=== PATIENT | female | born 1950 | race Caucasian/White ===

== ENCOUNTER 2019-08-31 08:21 | Observation (INO) | payer MEDICARE, BC ==
[~2019-08-31] VITALS: Ht 167.6 cm; Wt 51.0 kg
[~2019-08-31 08:21] MED LIST: ABAL1.56 INJ; ADVIL PM; BIOTIN; CALCIUM; EPINEPHRINE 1 MG/ML, 1ML ONE; FISH OIL; KETOROLAC 60 MG/2 ML ONE; MAGNESIUM; MONT10TA6 PO; RALO60TA PO; ROPIvacaine/PF 0.2%, 20 ML ONE; SODIUM CHLORIDE 0.9% 50 ML ONE; TART CHERRY; TRANEXAMIC ACID 100 MG/ML, 10ML ONE; TURMERIC
[2019-08-31] MEDS ORDERED: LACTATED RINGERS 1,000 ML IV SCH (09:12)
[2019-08-31 09:16] VITALS: BP 153/92
[2019-08-31] MEDS ORDERED: GABAPENTIN 300 MG CAPSULE PO ONE (09:30)
[2019-08-31] MEDS ORDERED: ACETAMINOPHEN 500 MG TABLET PO ONE (09:30)
[2019-08-31] MEDS ORDERED: FENTANYL PF 250 MCG/5ML ONE (09:35)
[2019-08-31] MEDS ORDERED: MIDAZOLAM 1 MG/ML, 2ML ONE (09:35)
[2019-08-31] MEDS ORDERED: LIDOCAINE-MPF 1%, 2ML ONE (09:41)
[2019-08-31] MEDS ORDERED: LIDOCAINE-MPF 1%, 2ML INFIL ONE (10:00)
[2019-08-31] MEDS ORDERED: SCOPOLAMINE PATCH, 1.5MG PATCH.TD72 TD ONE ×2 (10:43)
[2019-08-31] MEDS ORDERED: ACETAMINOPHEN 650 MG/20.3 ML UDC PO PRN (11:00)
[2019-08-31] MEDS ORDERED: ALUMINUM/MAG/SIMETHICONE 30 ML UDC PO PRN (11:00)
[2019-08-31] MEDS ORDERED: ONDANSETRON 4 MG TABLET PO PRN (11:00)
[2019-08-31] MEDS ORDERED: PROMETHAZINE 25 MG/ML, 1ML IM PRN (11:00)
[2019-08-31] MEDS ORDERED: DIPHENHYDRAMINE 50 MG/ML, 1ML IVPush PRN (11:00)
[2019-08-31] MEDS ORDERED: DIPHENHYDRAMINE 25 MG CAPSULE PO PRN (11:00)
[2019-08-31] MEDS ORDERED: BISACODYL 10 MG SUPP PR PRN (11:00)
[2019-08-31] MEDS ORDERED: SENNA/DOCUSATE TABLET PO PRN (11:00)
[2019-08-31] MEDS ORDERED: HYDROmorphone 1 MG/ML, 1ML INJ IVPush PRN ×2 (11:00→11:30)
[2019-08-31] MEDS ORDERED: MAGNESIUM HYDROXIDE 8%, 30ML UDC PO PRN (11:00)
[2019-08-31] MEDS ORDERED: PSYLLIUM PACKET PO PRN (11:00)
[2019-08-31] MEDS ORDERED: POLYETHYLENE GLYCOL 17 GM PACKET PO PRN (11:00)
[2019-08-31] MEDS ORDERED: VANCOMYCIN 1,000 MG ONE (11:08)
[2019-08-31] MEDS ORDERED: SODIUM CHLORIDE 0.9% 50 ML ONE (11:20)
[2019-08-31] MEDS ORDERED: ROPIvacaine/PF 0.2%, 20 ML ONE (11:20)
[2019-08-31] MEDS ORDERED: ONDANSETRON 2MG/ML, 2ML ONE (11:21)
[2019-08-31] MEDS ORDERED: PROPOFOL 10 MG/ML, 20ML ONE (11:21)
[2019-08-31] MEDS ORDERED: LIDOCAINE-MPF 2% ,5ML ONE (11:21)
[2019-08-31] MEDS ORDERED: DEXAMETHASONE 4 MG/ML, 1ML ONE (11:21)
[2019-08-31] MEDS ORDERED: BUPIVACAINE/PF 0.25% ONE (11:21)
[2019-08-31] MEDS ORDERED: CEFAZOLIN 1,000 MG ONE (11:21)
[2019-08-31] MEDS ORDERED: MIDAZOLAM 1 MG/ML, 2ML IV PRN (11:30)
[2019-08-31] MEDS ORDERED: MEPERIDINE/PF 25MG/ML,1ML IVPush PRN (11:30)
[2019-08-31] MEDS ORDERED: PROMETHAZINE 25 MG/ML, 1ML IV PRN (11:30)
[2019-08-31] MEDS ORDERED: METOPROLOL 1 MG/ML, 5ML IV PRN (11:30)
[2019-08-31] MEDS ORDERED: ALBUTEROL/IPRATROPIUM 2.5MG/0.5MG, 3 ML NPPB PRN (11:30)
[2019-08-31] MEDS ORDERED: hydrALAzine 20 MG/ML, 1ML IV PRN (11:30)
[2019-08-31] MEDS ORDERED: OXYcodone 5 MG/5 ML ORAL.SOL UDC PO PRN (11:30)
[2019-08-31] MEDS ORDERED: OXYcodone 5 MG/5 ML ORAL.SOL UDC ONE (12:25)
[2019-08-31] MEDS ORDERED: FENTANYL PF 100 MCG/2ML ONE ×2 (12:25→12:52)
[2019-08-31] MEDS: FENTANYL PF 100 MCG/2ML IV PRN ×3 (12:28→12:54)
[2019-08-31] MEDS ORDERED: TRANEXAMIC ACID 1,000 MG in SODIUM CHLORIDE 0.9% 100 ML IVPB ONE (12:34)
[2019-08-31] MEDS ORDERED: KETOROLAC 30 MG/1 ML ONE (12:54)
[2019-08-31] MEDS: KETOROLAC 30 MG/1 ML IV SCH ×2 (12:56→21:39)
[2019-08-31 13:50] VITALS: BP 140/60
[2019-08-31] MEDS: ONDANSETRON 2MG/ML, 2ML IV PRN (14:01)
[2019-08-31] MEDS: POTASSIUM CHLORIDE 20 MEQ in D5%-0.45% NACL 1,000 ML IV SCH (15:04)
[2019-08-31] MEDS: ASPIRIN 81 MG TABLET EC PO SCH (18:39)
[2019-08-31] MEDS: CEFAZOLIN PMX 1GM/50ML 50 ML IVPB SCH (19:52)
[2019-08-31 20:00] VITALS: BP 107/60
[2019-08-31 20:09] VITALS: BP 107/60
[2019-08-31] MEDS: DOCUSATE 100 MG CAPSULE PO SCH (21:00)
[2019-08-31] MEDS ORDERED: VANCOMYCIN PMX 1GM/200ML 200 ML IVPB ONE (23:00)
[2019-09-01] VITALS: BP 116/72
[2019-09-01] MEDS: POTASSIUM CHLORIDE 20 MEQ in D5%-0.45% NACL 1,000 ML IV SCH (01:06)
[2019-09-01] MEDS: ONDANSETRON 2MG/ML, 2ML IV PRN (03:23)
[2019-09-01] MEDS: OXYcodone IR 5MG TABLET PO PRN ×2 (03:23→09:02)
[2019-09-01] MEDS: CEFAZOLIN PMX 1GM/50ML 50 ML IVPB SCH (04:01)
[2019-09-01] MEDS: ASPIRIN 81 MG TABLET EC PO SCH (05:46)
[2019-09-01] MEDS: KETOROLAC 30 MG/1 ML IV SCH (05:47)
[2019-09-01] MEDS ORDERED: DEXAMETHASONE 4 MG/ML, 1ML IVPush ONE (06:00)
[2019-09-01 08:57] VITALS: BP 131/64
[2019-09-01] MEDS ORDERED: TAMSULOSIN 0.4 MG CAP.ER.24H PO SCH (09:00)
[2019-09-01] MEDS: DOCUSATE 100 MG CAPSULE PO SCH (09:03)
[2019-09-02] MEDS ORDERED: MONTELUKAST 10 MG TABLET PO SCH (09:00)
== END 2019-09-01 11:14 | disposition home or self-care (01) ==
LOC: OUT 08:21 → ORIP 10:43 → 4NE 13:33 → DCLOUNGE 09-01 10:54
PROVIDERS: ADMIT Orthopaedic Surgery; ATTEND Orthopaedic Surgery
DX: M17.12 Unilateral primary osteoarthritis, left knee (principal); M81.0 Age-related osteoporosis without current pathological fracture; J45.909 Unspecified asthma, uncomplicated; Z88.5 Allergy status to narcotic agent; Z79.899 Other long term (current) drug therapy; Z79.82 Long term (current) use of aspirin
CPT/HCPCS: 27447; 36415; 73560; 85014; 85018; 87081; 87147; 96365; 96366; 96367; 96375; 96376; 97116; 97150; 97161; C1713; C1776; G0378; J0171; J0690; J1100; J1885; J2250; J2405; J2704; J2795; J3010; J3370; J3480; J3490; J7120; Q0162

== ENCOUNTER 2019-10-19 09:34 | Observation (INO) | payer MEDICARE, BC ==
[~2019-10-19] VITALS: Ht 163.8 cm; Wt 50.9 kg
[~2019-10-19 09:34] MED LIST changes: -EPINEPHRINE 1 MG/ML, 1ML ONE; -KETOROLAC 60 MG/2 ML ONE; -ROPIvacaine/PF 0.2%, 20 ML ONE; -SODIUM CHLORIDE 0.9% 50 ML ONE; -TRANEXAMIC ACID 100 MG/ML, 10ML ONE
[2019-10-19] MEDS ORDERED: LACTATED RINGERS 1,000 ML IV SCH (10:14)
[2019-10-19] MEDS ORDERED: SCOPOLAMINE 1MG PATCH TD ONE (10:30)
[2019-10-19] MEDS ORDERED: LIDOCAINE-MPF 1%, 2ML INFIL ONE (10:30)
[2019-10-19] MEDS ORDERED: GABAPENTIN 300 MG CAPSULE PO ONE (10:30)
[2019-10-19] MEDS ORDERED: ACETAMINOPHEN 500 MG TABLET PO ONE (10:30)
[2019-10-19] MEDS ORDERED: PROPOFOL 50 ML ONE (10:38)
[2019-10-19] MEDS ORDERED: FENTANYL PF 250 MCG/5ML ONE (10:39)
[2019-10-19] MEDS ORDERED: MIDAZOLAM 1 MG/ML, 2ML ONE (10:39)
[2019-10-19 11:00] VITALS: BP 149/89
[2019-10-19] MEDS ORDERED: SODIUM CHLORIDE 0.9% 50 ML ONE (11:44)
[2019-10-19] MEDS ORDERED: KETOROLAC 60 MG/2 ML ONE (11:44)
[2019-10-19] MEDS ORDERED: TRANEXAMIC ACID 100 MG/ML, 10ML ONE (11:44)
[2019-10-19] MEDS ORDERED: EPINEPHRINE 1 MG/ML, 1ML ONE (11:44)
[2019-10-19] MEDS ORDERED: ROPIvacaine/PF 0.2%, 20 ML ONE (11:44)
[2019-10-19] MEDS ORDERED: DIPHENHYDRAMINE 50 MG/ML, 1ML IVPush PRN (12:00)
[2019-10-19] MEDS ORDERED: ACETAMINOPHEN 650 MG/20.3 ML UDC PO PRN (12:00)
[2019-10-19] MEDS ORDERED: PROMETHAZINE 25 MG/ML, 1ML IM PRN (12:00)
[2019-10-19] MEDS ORDERED: ALUMINUM/MAG/SIMETHICONE 30 ML UDC PO PRN (12:00)
[2019-10-19] MEDS ORDERED: TRANEXAMIC ACID 1,000 MG in SODIUM CHLORIDE 0.9% 100 ML IVPB ONE (12:00)
[2019-10-19] MEDS ORDERED: OXYcodone IR 5MG TABLET PO PRN (12:00)
[2019-10-19] MEDS ORDERED: ONDANSETRON 2MG/ML, 2ML IVPush PRN (12:00)
[2019-10-19] MEDS ORDERED: POLYETHYLENE GLYCOL 17 GM PACKET PO PRN (12:00)
[2019-10-19] MEDS ORDERED: METOCLOPRAMIDE 10MG TABLET PO PRN (12:00)
[2019-10-19] MEDS ORDERED: MAGNESIUM HYDROXIDE 8%, 30ML UDC PO PRN (12:00)
[2019-10-19] MEDS ORDERED: PSYLLIUM PACKET PO PRN (12:00)
[2019-10-19] MEDS ORDERED: HYDROmorphone 1 MG/ML, 1ML INJ IVPush PRN (12:00)
[2019-10-19] MEDS ORDERED: METOCLOPRAMIDE 5 MG/ML, 2ML IVPush PRN (12:00)
[2019-10-19] MEDS ORDERED: DIPHENHYDRAMINE 25 MG CAPSULE PO PRN (12:00)
[2019-10-19] MEDS ORDERED: ONDANSETRON 4 MG TABLET PO PRN (12:00)
[2019-10-19] MEDS ORDERED: LIDOCAINE-MPF 2% ,5ML ONE (12:58)
[2019-10-19] MEDS ORDERED: BUPIVACAINE/PF 0.25% ONE (12:58)
[2019-10-19] MEDS ORDERED: PROPOFOL 10 MG/ML, 20ML ONE (12:58)
[2019-10-19] MEDS ORDERED: CEFAZOLIN 1,000 MG ONE (12:58)
[2019-10-19] MEDS ORDERED: DEXAMETHASONE 4 MG/ML, 1ML ONE (12:58)
[2019-10-19] MEDS ORDERED: ONDANSETRON 2MG/ML, 2ML ONE (12:58)
[2019-10-19] MEDS ORDERED: MIDAZOLAM 1 MG/ML, 2ML IV PRN (13:00)
[2019-10-19] MEDS ORDERED: METOPROLOL 1 MG/ML, 5ML IV PRN (13:00)
[2019-10-19] MEDS ORDERED: ALBUTEROL/IPRATROPIUM 2.5MG/0.5MG, 3 ML NPPB PRN (13:00)
[2019-10-19] MEDS ORDERED: MEPERIDINE/PF 25MG/ML,1ML IVPush PRN (13:00)
[2019-10-19] MEDS ORDERED: PROMETHAZINE 25 MG/ML, 1ML IV PRN (13:00)
[2019-10-19] MEDS ORDERED: hydrALAzine 20 MG/ML, 1ML IV PRN (13:00)
[2019-10-19] MEDS ORDERED: OXYcodone 5 MG/5 ML ORAL.SOL UDC PO PRN (13:00)
[2019-10-19] MEDS ORDERED: HYDROmorphone 2 MG/ML, 1ML IVPush PRN (13:00)
[2019-10-19] MEDS ORDERED: FENTANYL PF 100 MCG/2ML ONE (13:46)
[2019-10-19] MEDS: FENTANYL PF 100 MCG/2ML IV PRN ×3 (13:48→14:15)
[2019-10-19] MEDS ORDERED: OXYcodone 5 MG/5 ML ORAL.SOL UDC ONE (13:51)
[2019-10-19] MEDS ORDERED: KETOROLAC 30 MG/1 ML ONE (14:29)
[2019-10-19] MEDS: KETOROLAC 30 MG/1 ML IV SCH ×2 (14:31→22:17)
[2019-10-19 14:45] VITALS: BP 150/89
[2019-10-19] MEDS: ACETAMINOPHEN 325 MG TABLET PO SCH ×2 (16:05→20:34)
[2019-10-19] MEDS: POTASSIUM CHLORIDE 20 MEQ in D5%-0.45% NACL 1,000 ML IV SCH (16:06)
[2019-10-19] MEDS: ASPIRIN 81 MG TABLET EC PO SCH (18:09)
[2019-10-19 20:03] VITALS: BP 104/62
[2019-10-19] MEDS: DOCUSATE 100 MG CAPSULE PO SCH (20:34)
[2019-10-19] MEDS: CEFAZOLIN PMX 1GM/50ML 50 ML IVPB SCH (20:34)
[2019-10-19 23:08] VITALS: BP 102/57
[2019-10-20] MEDS: ACETAMINOPHEN 325 MG TABLET PO SCH ×3 (00:18→08:53)
[2019-10-20 04:21] VITALS: BP 117/66
[2019-10-20] MEDS: CEFAZOLIN PMX 1GM/50ML 50 ML IVPB SCH (04:23)
[2019-10-20] MEDS: POTASSIUM CHLORIDE 20 MEQ in D5%-0.45% NACL 1,000 ML IV SCH (05:28)
[2019-10-20] MEDS ORDERED: DEXAMETHASONE 4 MG/ML, 1ML IVPush SCH (06:00)
[2019-10-20] MEDS: ASPIRIN 81 MG TABLET EC PO SCH (06:00)
[2019-10-20] MEDS: KETOROLAC 30 MG/1 ML IV SCH (06:01)
[2019-10-20 07:31] VITALS: BP 134/53
[2019-10-20] MEDS: DOCUSATE 100 MG CAPSULE PO SCH (08:52)
[2019-10-20] MEDS ORDERED: RALOXIFENE 60 MG TABLET PO SCH (09:00)
[2019-10-20] MEDS ORDERED: TAMSULOSIN 0.4 MG CAP.ER.24H PO SCH (09:00)
[2019-10-20] MEDS ORDERED: ASPI81TA45 PO (10:07)
[2019-10-20] MEDS ORDERED: MONTELUKAST 10 MG TABLET PO SCH (21:00)
== END 2019-10-20 11:12 | disposition home or self-care (01) ==
LOC: OUT 09:34 → ORIP 11:56 → 4NE 14:38 → DCLOUNGE 10-20 11:05
PROVIDERS: ADMIT Orthopaedic Surgery; ATTEND Orthopaedic Surgery
DX: M17.11 Unilateral primary osteoarthritis, right knee (principal); J45.909 Unspecified asthma, uncomplicated; R53.1 Weakness
CPT/HCPCS: 27447; 36415; 73560; 85014; 85018; 96365; 96366; 96375; 96376; 97161; C1713; C1776; G0378; J0171; J0690; J1100; J1885; J2250; J2405; J2704; J2795; J3010; J3480; J3490; J7120